=== PATIENT | male | born 1990 | race Caucasian/White ===

== ENCOUNTER 2019-07-28 20:50 | Emergency (ER) | payer SELFPAY ==
[~2019-07-28] VITALS: Ht 193 cm; Wt 137.9 kg
[2019-07-28] MEDS ORDERED: CEPH500C5 PO (22:57)
[2019-07-28 23:14] VITALS: BP 160/98
== END 2019-07-28 23:07 | disposition home or self-care (01) ==
LOC: ER 20:51 → EDBD 20:51 → ER 23:07
DX: L03.113 Cellulitis of right upper limb (principal); Z79.2 Long term (current) use of antibiotics
CPT/HCPCS: 73130; 99283